=== PATIENT | female | born 1995 | race Caucasian/White ===

== ENCOUNTER 2017-04-04 13:04 | Emergency (ER) | payer OTHER ==
--- NOTE | 2017-04-04 13:37 | EDPHY ---
H & P Stated Complaint: Sore throat, fever Time Seen by Provider: 04/04/17 13:36 HPI/ROS: CHIEF COMPLAINT: Sore throat, fever HISTORY OF PRESENT ILLNESS: 21-year-old female presents emergency department complaining of a sore throat that started yesterday. Patient reports her sore throat started on the right side yesterday morning and progressively moved to the other side as well. She reports she started having body aches last night, she had a temperature this morning of 103. Patient took Motrin this morning. She denies nasal congestion, cough, ear pain. She denies abdominal pain, chest pain, shortness of breath. Pain with swallowing. REVIEW OF SYSTEMS: A comprehensive 10 point review of systems is otherwise negative aside from elements mentioned in the history of present illness. Source: Patient Exam Limitations: No limitations - Physical Exam Exam: General: Alert, nontoxic. ENT: Tympanic membranes clear, external auditory canal, external ear and surrounding soft tissue including over the mastoid unremarkable. Nasopharynx is not injected, there is no rhinorrhea. Oropharynx with erythema. There is bilateral exudate. Bilateral tonsillar hypertrophy. No asymmetry. The uvula is midline. No elevation of tongue. There is no hoarseness. No drooling, patient has good control of their oral secretions. No trismus. No stridor. Cardiac: Regular rate and rhythm. Respiratory: Lungs clear to auscultation bilaterally. Abdomen: Soft, nontender Neurological: no meningismus. Skin: No rashes. Constitutional: Initial Vital Signs Temperature (C) 36.5 C 04/04/17 13:42 Heart Rate 105 H 04/04/17 13:42 Respiratory Rate 16 04/04/17 13:42 Blood Pressure 122/67 H 04/04/17 13:42 O2 Sat (%) 97 04/04/17 13:42 O2 Delivery Mode Room Air Allergies/Adverse Reactions: No Known Allergies Allergy (Unverified 04/04/17 13:41) Home Medications: Medication Instructions Recorded Penicillin V Potassium [Penicillin 500 mg PO BID #20 tab 04/04/17 VK] Medical Decision Making ED Course/Re-evaluation: 21-year-old nontoxic-appearing female presents with sore throat and fever x2 days. Rapid strep is positive. Patient is treated with oral penicillin. She is given a dose of Decadron in the emergency department. Patient instructions Tylenol and ibuprofen dosing. She is given strict return precautions for worsening symptoms, difficulty breathing. - Data Points Laboratory Results: 04/04/17 13:45 Group A Strep Screen POSITIVE H (NEGATIVE) Medications Given: Discontinued Medications Acetaminophen (Tylenol) 650 mg PO EDNOW ONE Stop: 04/04/17 14:19 Last Admin: 04/04/17 14:25 Dose: 650 mg Dexamethasone (Decadron) 10 mg PO EDNOW ONE Stop: 04/04/17 14:20 Last Admin: 04/04/17 14:25 Dose: 10 mg Departure - Departure Disposition: Home, Routine, Self-Care Clinical Impression: Strep pharyngitis Condition: Good Instructions: Strep Throat (ED) Additional Instructions: Take 500 mg of penicillin twice daily for 10 days. Drink plenty of fluids, take 650 mg of Tylenol every 8 hours with food as needed for fevers and sore, you can also take 600 mg of ibuprofen every 8 hours with food for 3-5 days. Referrals: Wilfred Miller MD [Medical Doctor] - As per Instructions ( primary care doctor on-call) Prescriptions: Penicillin V Potassium [Penicillin VK] 500 mg PO BID #20 tab
[2017-04-04] MEDS ORDERED: ACETAMINOPHEN 325 MG TAB PO ONE (14:18)
[2017-04-04] MEDS ORDERED: DEXAMETHASONE 4 MG TAB PO ONE (14:19)
[2017-04-04 14:26] VITALS: BP 118/67; PULSE 82; RESP 18; TEMP 98.6; O2SAT 95
== END 2017-04-04 14:31 | disposition home or self-care (01) ==
DX: J02.0 Streptococcal pharyngitis (principal)